=== PATIENT | female | born 1990 | race American Indian/Alaskan Native ===

== ENCOUNTER 2019-11-09 18:37 | Emergency (ER) | payer SELFPAY ==
[2019-11-09 18:44] VITALS: BP 127/73
[2019-11-10 00:25] LABS: Bacteria,Urine 1+ /HPF (Negative); Bilirubin,Urine NEG (Negative); Blood,Urine SM (Negative); Color,Urine Yellow (Yellow); Mucus,Urine FEW /HPF; Protein,Urine <15 mg/dL mg/dL (Negative); Urobilinogen,Urine < 2.0 mg/dL (<2.0)
[2019-11-10 00:27] LABS: HCG Qualitative,Urine Negative (Negative)
--- NOTE | 2019-11-10 01:27 | Emergency Department Report ---
ED Female HPI - General Chief complaint: Urogenital-Female Stated complaint: STD/PREGNACY CHECK Time Seen by Provider: 11/09/19 23:20 Source: patient Mode of arrival: Ambulatory Limitations: No Limitations - History of Present Illness Initial comments: 29-year-old female presents emerge department complaining of a few day history heavy vaginal odor and vaginal discharge with dysuria reports no fever, chills, sweats no vaginal bleeding. Ports no chest pain palpitations no nausea vomiting she is so suspicious of possible . She reports having heavy vaginal odor and excessive amounts of vaginal discharge stating that this occurs because she wears no underwear. Reports no fevers chills or sweats MD Complaint: vaginal discharge, dysuria Quality: dull Consistency: constant Improves with: none Are you Now?: No Associated Symptoms: vaginal discharge. denies: abdominal pain, nausea/vomiting, loss of appetite, dysuria, shortness of breath, weakness - Related Data Sexually active: No Previous Rx's Medication Instructions Recorded Last Taken Type Omeprazole Magnesium [PriLOSEC Otc] 20 mg PO QDAY #30 tablet. 10/09/15 Unknown Rx Fluconazole (Nf) [Diflucan TAB] 150 mg PO ONCE #1 tablet 11/10/19 Unknown Rx Nitrofurantoin [place]/M-Cryst 100 mg PO Q12HR #20 capsule 11/10/19 Unknown Rx [Macrobid CAP] metroNIDAZOLE [Flagyl] 500 mg PO Q12HR #20 tab 11/10/19 Unknown Rx Allergies Allergy/AdvReac Type Severity Reaction Status Date / Time No Known Allergies Allergy Unverified 06/24/13 16:12 ED Review of Systems ROS: Stated complaint: STD/PREGNACY CHECK Other details as noted in HPI Comment: All other systems reviewed and negative ED Past Medical Hx - Past Medical History Previous Medical History?: No Additional medical history: enlarged surgery - Surgical History Past Surgical History?: No - Social History Smoking Status: Current Every Day Smoker Substance Use Type: Alcohol, Methamphetamines - Medications Home Medications: Home Medications Medication Instructions Recorded Confirmed Last Taken Type Omeprazole Magnesium [PriLOSEC Otc] 20 mg PO QDAY #30 tablet. 10/09/15 Unknown Rx Fluconazole (Nf) [Diflucan TAB] 150 mg PO ONCE #1 tablet 11/10/19 Unknown Rx Nitrofurantoin [place]/M-Cryst 100 mg PO Q12HR #20 capsule 11/10/19 Unknown Rx [Macrobid CAP] metroNIDAZOLE [Flagyl] 500 mg PO Q12HR #20 tab 11/10/19 Unknown Rx ED Physical Exam - General Limitations: No Limitations General appearance: alert, in no apparent distress - Head Head exam: Present: atraumatic, normocephalic - Eye Eye exam: Present: normal appearance, PERRL, EOMI Pupils: Present: normal accommodation - ENT ENT exam: Present: normal exam, mucous membranes moist, TM's normal bilaterally - Neck Neck exam: Present: normal inspection, full ROM - Respiratory Respiratory exam: Present: normal lung sounds bilaterally. Absent: respiratory distress, wheezes, rales, chest wall tenderness, accessory muscle use - Cardiovascular Cardiovascular Exam: Present: regular rate, normal rhythm. Absent: systolic murmur, diastolic murmur, rubs, gallop - GI/Abdominal GI/Abdominal exam: Present: soft, normal bowel sounds. Absent: distended, tenderness, guarding, hyperactive bowel sounds, hypoactive bowel sounds, organomegaly, mass - Extremities Exam Extremities exam: Present: normal inspection, normal capillary refill - Back Exam Back exam: Present: normal inspection. Absent: CVA tenderness (R), CVA tenderness (L) - Neurological Exam Neurological exam: Present: alert, oriented X3, CN II-XII intact, normal gait - Psychiatric Psychiatric exam: Present: normal affect, normal mood - Skin Skin exam: Present: warm, dry, intact, normal color. Absent: rash ED Course Vital Signs 11/09/19 18:43 Temperature 98.3 F Pulse Rate 80 Respiratory 16 Rate Blood Pressure 127/73 [Right] O2 Sat by Pulse 98 Oximetry Critical care attestation.: If time is entered above; I have spent that time in minutes in the direct care of this critically ill patient, excluding procedure time. ED Disposition Clinical Impression: Bacterial vaginitis Disposition: DC-01 TO HOME OR SELFCARE Is pt being admited?: No Does the pt Need Aspirin: No Condition: Stable Instructions: Bacterial Vaginosis (ED) Referrals: PRIMARY CARE, [Primary Care Provider] - 3-5 Days [facility] [Provider Group] - 3-5 Days Forms: STI Treatment and Prevention
== END 2019-11-10 01:42 | disposition home or self-care (01) ==
LOC: ED 18:37
DX: N76.0 Acute vaginitis (principal); B96.89 Other specified bacterial agents as the cause of diseases classified elsewhere; F15.90 Other stimulant use, unspecified, uncomplicated; F17.200 Nicotine dependence, unspecified, uncomplicated; Z79.899 Other long term (current) drug therapy
CPT/HCPCS: 81001; 81025; 87076; 87086; 87186; 87210

== ENCOUNTER 2019-12-23 09:03 | Emergency (ER) | payer SELFPAY ==
[2019-12-23] MEDS ORDERED: ONDANSETRON 4 MG/2 ML INJ IV ONE (10:16)
[2019-12-23] MEDS ORDERED: SODIUM CHLORIDE 0.9% 1000 ML 1,000 ML IV ONE (10:16)
--- NOTE | 2019-12-23 11:11 | Emergency Department Report ---
ED General Adult HPI - General Chief complaint: Nausea/Vomiting/Diarrhea Stated complaint: VOMITING Time Seen by Provider: 12/23/19 10:15 Source: patient Mode of arrival: Ambulatory Limitations: No Limitations - History of Present Illness Initial comments: 29-year-old -German female patient presents with complaints of nausea and vomiting x5 days. She states she is able to tolerate liquids without difficulty. She admits to right lower abdominal pain and denies any hematemesis/coffee-ground emesis, diarrhea/hematochezia/melena, history of a bdominal surgeries, chest pain, cough, shortness of breath, dysuria/hematuria/urinary frequency, or vaginal discharge/bleeding/dyspareunia. She rates her abdominal pain is a 5/10 in severity and denies it as a deep ache. Patient states she also had a low-grade fever on Monday of last week at 99 .8. She denies any prior medical history. - Related Data Previous Rx's Medication Instructions Recorded Last Taken Type Omeprazole Magnesium [PriLOSEC Otc] 20 mg PO QDAY #30 tablet. 10/09/15 Unknown Rx Fluconazole (Nf) [Diflucan TAB] 150 mg PO ONCE #1 tablet 11/10/19 Unknown Rx Nitrofurantoin [place]/M-Cryst 100 mg PO Q12HR #20 capsule 11/10/19 Unknown Rx [Macrobid CAP] metroNIDAZOLE [Flagyl] 500 mg PO Q12HR #20 tab 11/10/19 Unknown Rx Ciprofloxacin HCl [Ciprofloxacin 500 mg PO Q12HR 7 Days #14 tab 12/23/19 Unknown Rx TAB] Promethazine HCl [Promethazine TAB] 12.5 mg PO [id number] PRN #15 tab 12/23/19 Unknown Rx Allergies Allergy/AdvReac Type Severity Reaction Status Date / Time No Known Allergies Allergy Unverified 06/24/13 16:12 ED Review of Systems ROS: Stated complaint: VOMITING Other details as noted in HPI Constitutional: fever. denies: chills, diaphoresis, malaise, weakness Respiratory: denies: cough, shortness of breath Cardiovascular: denies: chest pain, syncope Endocrine: denies: excessive sweating Gastrointestinal: abdominal pain, nausea, vomiting. denies: diarrhea, constipation, hematemesis, melena, hematochezia Genitourinary: denies: urgency, dysuria, frequency, hematuria, discharge, abnormal menses, dyspareunia Musculoskeletal: denies: back pain, arthralgia Skin: denies: rash, lesions, change in color Neurological: denies: headache, numbness, paresthesias Hematological/Lymphatic: denies: easy bleeding, swollen glands ED Past Medical Hx - Past Medical History Previous Medical History?: No Additional medical history: enlarged surgery - Surgical History Past Surgical History?: No - Social History Smoking Status: Current Every Day Smoker Substance Use Type: Alcohol, Methamphetamines - Medications Home Medications: Home Medications Medication Instructions Recorded Confirmed Last Taken Type Omeprazole Magnesium [PriLOSEC Otc] 20 mg PO QDAY #30 tablet.dr 10/09/15 Unknown Rx Fluconazole (Nf) [Diflucan TAB] 150 mg PO ONCE #1 tablet 11/10/19 Unknown Rx Nitrofurantoin [place]/M-Cryst 100 mg PO Q12HR #20 capsule 11/10/19 Unknown Rx [Macrobid CAP] metroNIDAZOLE [Flagyl] 500 mg PO Q12HR #20 tab 11/10/19 Unknown Rx Ciprofloxacin HCl [Ciprofloxacin 500 mg PO Q12HR 7 Days #14 tab 12/23/19 Unknown Rx TAB] Promethazine HCl [Promethazine TAB] 12.5 mg PO [id number] PRN #15 tab 12/23/19 Unknown Rx ED Physical Exam - General Limitations: No Limitations General appearance: alert, in no apparent distress - Head Head exam: Present: atraumatic, normocephalic - Eye Eye exam: Present: normal appearance. Absent: scleral icterus - ENT ENT exam: Present: mucous membranes moist - Neck Neck exam: Present: normal inspection - Respiratory Respiratory exam: Present: normal lung sounds bilaterally. Absent: respiratory distress - Cardiovascular Cardiovascular Exam: Present: regular rate, normal rhythm. Absent: systolic murmur, diastolic murmur, rubs, gallop - GI/Abdominal GI/Abdominal exam: Present: soft, tenderness (Right lower quadrant), normal bowel sounds. Absent: distended, guarding, rebound, rigid - Expanded GI/Abdominal Exam Expanded GI/Abdominal exam: Absent: Cheatham's sign - Extremities Exam Extremities exam: Present: full ROM - Back Exam Back exam: Present: normal inspection, CVA tenderness (R) (Mild) - Neurological Exam Neurological exam: Present: alert, oriented X3, normal gait - Psychiatric Psychiatric exam: Present: normal affect, normal mood - Skin Skin exam: Present: warm, dry, intact, normal color. Absent: rash, cyanosis, diaphoretic, erythema, pallor, ecchymosis ED Course Vital Signs 12/23/19 12/23/19 09:07 14:20 Temperature 99.2 F 98.8 F Pulse Rate 102 H 96 H Respiratory 16 18 Rate Blood Pressure 124/80 122/78 [Right] O2 Sat by Pulse 98 98 Oximetry ED Medical Decision Making - Lab Data Result diagrams: 12/23/19 10:52 12/23/19 10:52 - Radiology Data Radiology results: report reviewed Doxylamine 10 mg/pyridoxine 10 mg - Medical Decision Making 29-year-old -German female patient presents with complaints of nausea and vomiting x5 days. She states she is able to tolerate liquids without difficulty. She admits to right lower abdominal pain and denies any hematemesis/coffee-ground emesis, diarrhea/hematochezia/melena, history of abdominal surgeries, chest pain, cough, shortness of breath, dysuria/hematuria/urinary frequency, or vaginal discharge/bleeding/dyspareunia. She rates her abdominal pain is a 5/10 in severity and denies it as a deep ache. Patient states she also had a low-grade fever on Monday of last week at 99.8. She denies any prior medical history. On exam, patient has right lower quadrant pain and mild right CVA tenderness. UA shows 44 WBCs. White count is normal CBC. CT shows right pyelonephritis, however it cannot exclude developing renal abscess. Discussed patient with Dr. Waters-recommends normal treatment for Azam and strict return precautions for patient. Patient given 1 g IV Rocephin. Prescription for Cipro for home. She remains afebrile and nontachycardic. Discussed in great detail signs and symptoms that should prompt immediate return to the emergency department in detail with patient who verbalizes understanding. She is well-appearing, tolerating foods and fluids p.o., and stable for discharge home. Critical care attestation.: If time is entered above; I have spent that time in minutes in the direct care of this critically ill patient, excluding procedure time. ED Disposition Clinical Impression: Pyelonephritis of right kidney Disposition: DC-01 TO HOME OR SELFCARE Is pt being admited?: No Condition: Stable Instructions: Acute Pyelonephritis (ED) Prescriptions: Promethazine HCl [Promethazine TAB] 12.5 mg PO [id number] PRN #15 tab PRN Reason: Nausea Ciprofloxacin HCl [Ciprofloxacin TAB] 500 mg PO Q12HR 7 Days #14 tab Referrals: PRIMARY [facility] [Primary Care Provider] - 12/26/19 [facility] [Provider Group] - 3-5 Days
[2019-12-23 11:25] LABS: Hematocrit 37.4 % (30.3-42.9); Hemoglobin 12.2 gm/dl (10.1-14.3); Mean Corpuscular HGB Conc 33 % (30-34); Mean Corpuscular Volume 85 fl (79-97); Platelet Count 249 K/mm3 (140-440); Red Blood Count 4.42 M/mm3 (3.65-5.03); Red Cell Distribution Width 14.2 % (13.2-15.2)
[2019-12-23 11:31] LABS: Bacteria,Urine 1+ /HPF (Negative); Bilirubin,Urine NEG (Negative); Blood,Urine SM (Negative); Color,Urine Yellow (Yellow); Mucus,Urine FEW /HPF; Urobilinogen,Urine < 2.0 mg/dL (<2.0)
[2019-12-23 11:44] LABS: Blood Urea Nitrogen 4 mg/dL (7-17); Calcium 9.2 mg/dL (8.4-10.2); Hemolysis Index 0
[2019-12-23 11:45] LABS: BUN/Creatinine Ratio 7
[2019-12-23 12:13] LABS: Alanine Aminotransferase 85 units/L (7-56); Albumin 3.7 g/dL (3.9-5)
[2019-12-23 12:46] LABS: Basophils % (Manual) 0 % (0.0-1.8); RBC Morphology Normal; Total Cells Counted 100
[2019-12-23 12:47] LABS: Platelet Estimate Cons
--- NOTE | 2019-12-23 13:33 | Cat Scan Report ---
CT ABDOMEN AND PELVIS WITH CONTRAST INDICATION / CLINICAL INFORMATION: Right lower quadrant pain, nausea with vomiting x1 day. TECHNIQUE: Axial CT images were obtained through the abdomen and pelvis after 100 cc Omnipaque [address] scans at this location are performed using CT dose reduction for ALARA by means of automated exposure control. COMPARISON: None available. FINDINGS: LOWER CHEST: No significant abnormality. LIVER: No significant abnormality. GALLBLADDER: No significant abnormality. BILE DUCTS: No significant abnormality. PANCREAS: No significant abnormality. SPLEEN: No significant abnormality. ADRENALS: No significant abnormality. RIGHT KIDNEY / URETER: The right kidney is enlarged with multifocal areas of cortical medullary heter ogeneity. A textile machinery sales representative area along the right upper renal pole on image 35 of series 4 measures 5.2 x 4.8 cm. There is generalized urothelial thickening and hyperenhancement. There is mild right perin ephric fat stranding with mild edema noted along the right paracolic gutter. No other significant abn ormality. LEFT KIDNEY / URETER: No significant abnormality. STOMACH / SMALL BOWEL: No significant abnormality. COLON: No significant abnormality. APPENDIX: No significant abnormality. PERITONEUM: No free fluid. No free air. No fluid collection. LYMPH NODES: No significant adenopathy. AORTA / ARTERIES: No significant abnormality. IVC / VEINS: No significant abnormality. URINARY BLADDER: No significant abnormality. REPRODUCTIVE ORGANS: No significant abnormality. ADDITIONAL FINDINGS: None. SKELETAL SYSTEM: No significant abnormality. IMPRESSION: 1. Suspected acute right pyelonephritis. An evolving right renal abscess cannot be excluded. Close cl inical and imaging follow-up is recommended. 2. No other acute abnormality is seen to explain the patient's symptoms. Signer Name: Efra Dickey MD Signed: 12/23/2019 1:28 PM Workstation Name: [id number]
[2019-12-23] MEDS ORDERED: cefTRIAXone/NS 1 GM/50 ML 1 GM/50 ML BAG IV ONE (13:41)
[2019-12-23 14:21] VITALS: BP 122/78
== END 2019-12-23 14:20 | disposition home or self-care (01) ==
LOC: ED 09:03
DX: N12 Tubulo-interstitial nephritis, not specified as acute or chronic (principal)
CPT/HCPCS: 36415; 74177; 80053; 81001; 83690; 84702; 85007; 85025; 87076; 87086; 87186; 96365; 96375; 99284; J0696; J2405; J7030; Q9967

== ENCOUNTER 2020-01-14 10:52 | Emergency (ER) | payer SELFPAY ==
[2020-01-14 11:09] VITALS: BP 116/77
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
--- NOTE | 2020-01-14 12:03 | XRay Report ---
RIGHT KNEE 3 VIEWS INDICATION: pain after fall injury. COMPARISON: None. IMPRESSION: No acute osseous or soft tissue abnormality. No significant DJD. Signer Name: Gorge Bermudez Jr, MD Signed: 01/14/2020 11:59 AM Workstation Name: [id number]
== END 2020-01-14 13:31 | disposition home or self-care (01) ==
LOC: ED 10:52
DX: S83.8X1A Sprain of other specified parts of right knee, initial encounter (principal); F17.200 Nicotine dependence, unspecified, uncomplicated; F15.10 Other stimulant abuse, uncomplicated; X58.XXXA Exposure to other specified factors, initial encounter; Y93.89 Activity, other specified; Y92.89 Other specified places as the place of occurrence of the external cause; Y99.8 Other external cause status

== ENCOUNTER 2020-03-20 19:19 | Emergency (ER) | payer SELFPAY ==
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
[2020-03-20 20:50] VITALS: BP 130/69
== END 2020-03-20 20:48 | disposition home or self-care (01) ==
LOC: ED 19:19
DX: S09.92XA Unspecified injury of nose, initial encounter (principal); F17.200 Nicotine dependence, unspecified, uncomplicated; Z79.899 Other long term (current) drug therapy; X58.XXXA Exposure to other specified factors, initial encounter; Y93.89 Activity, other specified; Y92.89 Other specified places as the place of occurrence of the external cause; Y99.8 Other external cause status
CPT/HCPCS: 99282